=== PATIENT | male | born 1955 | race Caucasian/White ===

== ENCOUNTER 2017-02-14 02:37 | Emergency (ER) | payer SELFPAY ==
[2017-02-14] MEDS ORDERED: Ondansetron HCl/PF 4 MG/2 ML Vial ONE ×2 (03:04→04:10)
[2017-02-14] MEDS ORDERED: Famotidine In NaCl 20 mg/50 ml Premix Bag ONE (03:04)
[2017-02-14 03:09] LABS: #Basophils 0.1 thou/uL (0.0-0.2); #Eosinphils 0.1 thou/uL (0.0-0.7); #Lymphocytes 1.7 thou/uL (1.20-3.40); #Monocytes 0.9 thou/uL (0.11-0.59); #Neutrophils 14.6 thou/uL (1.40-6.50); %Basophils 0.4 % (0.0-1.0); %Eosinophils 0.6 % (0.0-10.0); %Lymphocytes 9.5 % (21.0-51.0); %Monocytes 5.3 % (0.0-10.0); %Neutrophils 84.2 % (42.0-75.0); Hemoglobin 15.8 g/dL (14.0-18.0); Mean Corpuscular HGB CONC 33.5 g/dL (32.0-36.0); Mean Corpuscular Hemoglobin 31.2 pg (27.0-31.0); Mean Corpuscular Volume 93.1 fl (80.0-94.0); Mean Platelet Volume 7.4 fL (7.4-10.4); Platelet Count 283 thou/uL (130-400); RBC Distribution Width 12.9 % (11.5-14.5); Red Blood Cell (RBC) Count 5.07 mill/uL (4.70-6.10); White Blood Cell (WBC) Count 17.4 thou/uL (4.8-10.8)
[2017-02-14 03:23] LABS: ALT (SGPT) 34 U/L (8-55); AST (SGOT) 17 U/L (5-34); Albumin 4.5 g/dL (3.4-4.8); Alkaline Phosphatase 113 U/L (40-150); Anion Gap 16 mmol/L (10-20); BUN (Urea Nitrogen) 22 mg/dL (8.4-25.7); Bilirubin, Total 0.6 mg/dL (0.2-1.2); Calc. Creatinine Clearance 0 mL/min (70-130); Calcium 9.4 mg/dL (7.8-10.44); Carbon Dioxide 20 mmol/L (23-31); Chloride 108 mmol/L (98-107); Estimated GFR-MDRD 77; Globulin 3.2 g/dL (2.4-3.5); Glucose 139 mg/dL (80-115); Lipase 25 U/L (8-78); Potassium 4.2 mmol/L (3.5-5.1); Protein, Total 7.7 g/dL (5.8-8.1); Sodium 140 mmol/L (136-145)
[2017-02-14 03:24] LABS: CKMB 1.5 ng/mL (0-6.6); Troponin I Less than 0.010 ng/mL (< 0.028)
[2017-02-14 03:24] LABS: Bilirubin Negative (Negative); Blood, Urine Negative (Negative); Clarity Clear (Clear); Glucose, Urine (Dipstick) Negative (Negative); Leukocyte Negative (Negative); Nitrite Negative (Negative); Protein, Urine (Dipstick) Negative (Neg-Trace); Specific Gravity, Urine 1.025 (1.005-1.030); Urobilinogen 0.2 mg/dL (0.2-1.0)
--- NOTE | 2017-02-14 08:42 | CT ---
PRELIMINARY REPORT/[facility]/EMERGENCY AFTER HOURS PROCEDURE: EXAM: CT Abdomen and Pelvis With Intravenous Contrast CLINICAL HISTORY: 62 years old, male; Pain; Abdominal pain; Generalized; Prior surgery; Surgery date: 6+ months; Surge ry type: Colostomy; Patient HX: Pt presents to the er for nausea \T\ vomiting since 4: 30pm yesterda y. Patient states has had watery stools multiple times. Patient has colostomy bag. Possible sbo. HX of obstruction with ruptured bowel; Additional info: iv contrast only per er md TECHNIQUE: Axial computed tomography images of the abdomen and pelvis with intravenous contrast. This CT exam w as performed using one or more of the following dose reduction techniques: automated exposure contro l, adjustment of the mA and/or kV according to patient size, and/or use of iterative reconstruction technique. Coronal reformatted images were created and reviewed. CONTRAST: 93 mL of ISOVUE 370 administered intravenously. COMPARISON: No relevant prior studies available. FINDINGS: Lower thorax: No acute findings. ABDOMEN: Liver: The liver is diffusely low in attenuation, consistent with fatty infiltration. Gallbladder and bile ducts: The gallbladder is contracted and a gallstone is seen. No ductal dilatio n. Pancreas: Unremarkable. No mass. No ductal dilation. Spleen: Calcified splenic granuloma. Adrenals: The left adrenal gland is hypertrophic. Kidneys and ureters: Unremarkable. No solid mass. No hydronephrosis. Stomach and bowel: A left lower quadrant ostomy is noted. Small bowel loops are mainly fluid filled and demonstrate mucosal thickening. Liquid stool is seen in the colon. No obstruction. Appendix: Normal appendix. PELVIS: Bladder: Unremarkable. No mass. Reproductive: Unremarkable as visualized. ABDOMEN and PELVIS: Intraperitoneal space: Unremarkable. No free air. No significant fluid collection. Bones/joints: No acute fracture. No dislocation. Soft tissues: Unremarkable. Vasculature: Atherosclerotic vascular calcification and soft plaque. No abdominal aortic aneurysm. Lymph nodes: Unremarkable. No enlarged lymph nodes. IMPRESSION: 1. Enteritis with diarrhea. 2. Cholelithiasis. Thank you for allowing us to participate in the care of your patient. Dictated and Authenticated by: Renetta Castro MD 02/14/2017 3:56 AM Central Time ([place] \T\ [place]) FINAL REPORT CT ABDOMEN AND PELVIS WITH CONTRAST: Date: 02/14/[address] of the abdomen and pelvis was performed for evaluation of nausea and vomiting. The patient has a colostomy and there is a prior history of bowel obstruction with perforation. Axial slices we re acquired after giving IV contrast. Oral contrast was withheld by request. Coronal reconstructions were done. FINDINGS: The stomach is filled with fluid. The small bowel is filled with fluid and has some diffuse thickeni ng of its griffith throughout. Some of the proximal small bowel is mildly dilated up to 3.5 cm in size. Almost all of the small bowel shows some degree of diffuse thickening. Fluid is seen in the colon, which is not really distended. The findings are more consistent with gastroenteritis than francis obst ruction. The colostomy in the left lower quadrant is noted. The bowel leading up to it is not dilate d. The liver and spleen show no space-occupying lesions. The liver may be slightly low in density. The gallbladder is contracted and contains a gallstone. The pancreas was unremarkable in appearance. The left adrenal gland is somewhat hypertrophic compared to the right. The kidneys show no mass or hydr onephrosis. Arteriosclerotic change is seen in the aorta without signs of aneurysm. CT of the pelvis showed no pelvic masses, free fluid, or inflammatory changes around the bowel. Fat- filled inguinal hernias are seen bilaterally. IMPRESSION: 1. Fluid-filled stomach and small bowel with mild distention of the small bowel. The diffuse bowel wall thickening throughout small bowel is more suggestive of a diffuse enteritis than obstruction at this point in time. 2. Cholelithiasis. Report in agreement with preliminary reading by Taylor. POS: HOME
[2017-02-14] MEDS ORDERED: Iopamidol 370 76% 100 ML VIAL ONE (09:00)
== END 2017-02-14 04:05 | disposition home or self-care (01) ==
LOC: BURERS 02:37
DX: A09 Infectious gastroenteritis and colitis, unspecified (principal); R11.2 Nausea with vomiting, unspecified; I48.91 Unspecified atrial fibrillation; I10 Essential (primary) hypertension; F17.210 Nicotine dependence, cigarettes, uncomplicated; Z79.899 Other long term (current) drug therapy
CPT/HCPCS: 74177; 80053; 81003; 82553; 83690; 84484; 85025; 94760; 96365; 96375; 96376; A4216; J2405

== ENCOUNTER 2017-09-23 18:38 | Emergency (ER) | payer OTHER, SELFPAY ==
[2017-09-23] MEDS ORDERED: Metoprolol Tartrate 5 MG/5 ML VIAL ONE (18:49)
[2017-09-23 19:10] LABS: ALT (SGPT) 37 U/L (8-55); AST (SGOT) 18 U/L (5-34); Albumin 4.2 g/dL (3.4-4.8); Alkaline Phosphatase 101 U/L (40-150); Anion Gap 16 mmol/L (10-20); BUN (Urea Nitrogen) 11 mg/dL (8.4-25.7); Bilirubin, Total 0.4 mg/dL (0.2-1.2); Calc. Creatinine Clearance 0 mL/min (70-130); Calcium 9.5 mg/dL (7.8-10.44); Carbon Dioxide 25 mmol/L (23-31); Chloride 106 mmol/L (98-107); Estimated GFR-MDRD 87; Globulin 3.1 g/dL (2.4-3.5); Glucose 111 mg/dL (80-115); Lipase 17 U/L (8-78); Potassium 3.8 mmol/L (3.5-5.1); Protein, Total 7.3 g/dL (5.8-8.1); Sodium 143 mmol/L (136-145)
[2017-09-23 19:11] LABS: #Basophils 0.1 thou/uL (0.0-0.2); #Eosinphils 0.1 thou/uL (0.0-0.7); #Lymphocytes 2.9 thou/uL (1.20-3.40); #Monocytes 0.5 thou/uL (0.11-0.59); #Neutrophils 4.3 thou/uL (1.40-6.50); %Basophils 1.1 % (0.0-1.0); %Eosinophils 1.8 % (0.0-10.0); %Lymphocytes 36.7 % (21.0-51.0); %Monocytes 5.9 % (0.0-10.0); %Neutrophils 54.4 % (42.0-75.0); CKMB 1.4 ng/mL (0-6.6); Hemoglobin 16.4 g/dL (14.0-18.0); Mean Corpuscular HGB CONC 35.2 g/dL (32.0-36.0); Mean Corpuscular Hemoglobin 32.7 pg (27.0-31.0); Mean Corpuscular Volume 92.9 fl (80.0-94.0); Mean Platelet Volume 6.9 fL (7.4-10.4); Platelet Count 246 thou/uL (130-400); RBC Distribution Width 11.9 % (11.5-14.5); Red Blood Cell (RBC) Count 5.03 mill/uL (4.70-6.10); Troponin I Less than 0.010 ng/mL (< 0.028); White Blood Cell (WBC) Count 7.9 thou/uL (4.8-10.8)
[2017-09-23] MEDS ORDERED: Fentanyl 100 MCG/2 ML VIAL ONE (19:12)
[2017-09-23] MEDS ORDERED: Ondansetron HCl/PF 4 MG/2 ML Vial ONE (19:14)
[2017-09-23] MEDS ORDERED: Lorazepam 2 MG/ML VIAL ONE (19:37)
--- NOTE | 2017-09-23 20:38 | RAD ---
PORTABLE CHEST: 09/23/17 An AP portable film at 1840 shows a normal sized heart and clear lungs. No infiltrate or effusion was seen. There is no vascular congestion or edema. The trachea is midline and the mediastinum appears n ormal. IMPRESSION: No acute thoracic findings. POS: HOME
== END 2017-09-23 19:50 | disposition short-term general hospital (02) ==
LOC: BURERS 18:38
DX: I48.91 Unspecified atrial fibrillation (principal); I20.0 Unstable angina; I10 Essential (primary) hypertension; F32.9 Major depressive disorder, single episode, unspecified; F17.210 Nicotine dependence, cigarettes, uncomplicated; Z79.899 Other long term (current) drug therapy
CPT/HCPCS: 71045; 80053; 82553; 83690; 84484; 85025; 93005; 94760; 96361; 96374; 96375; J2060; J2405; J3010

== ENCOUNTER 2018-02-14 08:05 | Emergency (ER) | payer OTHER | END 2018-02-14 08:25 | disposition home or self-care (01) | LOC: BURERS 08:05 | DX: S39.012A Strain of muscle, fascia and tendon of lower back, initial encounter (principal); I48.91 Unspecified atrial fibrillation; I10 Essential (primary) hypertension; F43.10 Post-traumatic stress disorder, unspecified; F32.9 Major depressive disorder, single episode, unspecified; F17.210 Nicotine dependence, cigarettes, uncomplicated; Z79.899 Other long term (current) drug therapy; X50.1XXA Overexertion from prolonged static or awkward postures, initial encounter | CPT/HCPCS: 99283 ==